=== PATIENT | male | born 1935 | race Caucasian/White ===

== ENCOUNTER 2023-01-01 21:31 | Emergency (ER) | payer MEDICARE, BC ==
[2023-01-01] MEDS ORDERED: Doxycycline 100 MG Cap PO STA (22:42)
== END 2023-01-01 23:10 | disposition home or self-care (01) ==
LOC: JP.ED 21:31
DX: S70.262A Insect bite (nonvenomous), left hip, initial encounter (principal); W57.XXXA Bitten or stung by nonvenomous insect and other nonvenomous arthropods, initial encounter
CPT/HCPCS: 99281; A9270